=== PATIENT | male | born 1995 | race African-American/Black ===

== ENCOUNTER 2022-08-14 09:17 | Emergency (ER) | payer OTHER, SELFPAY ==
--- NOTE | ~2022-08-14 | XR_ITS ---
XR ankle LT min 3V, XR foot LT min 3V 08/14/2022 10:29 Indication: Left foot and ankle pain Procedure: 4 views left ankle and 4 views left foot Comparison: No prior studies for comparison. Findings: There is anatomic alignment. No acute fracture, subluxation or dislocation. No focal soft t issue abnormality. Lisfranc joint intact. No foreign bodies. Impression: 1: No acute fracture. Reviewed, dictated and finalized at location [facility]. [employer] Impression: 1: No acute fracture. Impression: 1: No acute fracture.
[2022-08-14 09:24] VITALS: BP 153/85; PULSE 79; RESP 18; TEMP 36.7; O2SAT 100
[2022-08-14] MEDS: IBUPROFEN 400 MG TABLET 800 MG PO (10:35)
[2022-08-14 10:37] VITALS: BP 163/84; PULSE 77; RESP 18; O2SAT 100
--- NOTE | 2022-08-14 10:39 | ED.GENADULT ---
HPI - General Adult General Chief complaint: Extremity Injury, Lower Stated complaint: Left foot injury 2 days ago, pain and swelling Time Seen by Provider: 08/14/22 09:23 History of Present Illness HPI narrative: This is a 27-year-old male presents to the ED with chief complaint of left ankle and foot injury. Related Data Allergies Allergy/AdvReac Type Severity Reaction Status Date / Time No Known Allergies Allergy Verified 08/14/22 09:32 Review of Systems Review of Systems: CONSTITUTIONAL: Denies fever, chills, or sweats. EYES: Denies visual changes, redness, or discharge. ENT: Denies rhinorrhea, congestion, sore throat, or otalgia. CARDIOVASCULAR: Denies chest pain, palpitations, or edema. RESPIRATORY: Denies cough or dyspnea. GASTROINTESTINAL: Denies abdominal pain, nausea, vomiting, or diarrhea. GENITOURINARY: Denies dysuria or hematuria. SKIN: Denies rash or itching. MUSCULOSKELETAL: Denies back pain, joint pain, or myalgia. NEUROLOGIC: Denies headache, numbness, dizziness, or weakness. PSYCHIATRIC: Denies anxiety or depression. Exam Narrative: GENERAL: Well-appearing, well-nourished, and in no acute distress. HEAD: Normocephalic, atraumatic. EYES: PERRLA and EOMI. EXTREMITIES: Left ankle: Mild effusion present. Tenderness along the lateral malleolus worse than medial malleolus. Ankle is stable. Left foot: Mild effusion present. Also has tenderness along the fifth metatarsal. MSK exam otherwise benign. Neurovascularly intact distally SKIN: Warm, dry, no rash. No overlying skin changes. Soft compartments. NEURO: Alert and oriented x3. No focal deficits. Course Vital Signs Vital signs: Vital Signs Temperature 98.1 F 08/14/22 09:24 Pulse Rate 79 08/14/22 09:24 Respiratory Rate 18 08/14/22 09:24 Blood Pressure 153/85 H 08/14/22 09:24 Pulse Oximetry 100 08/14/22 09:24 Oxygen Delivery Room Air 08/14/22 09:24 Temperature 98.1 F 08/14/22 09:24 Pulse Rate 61 08/14/22 11:00 Respiratory Rate 18 08/14/22 11:00 Blood Pressure 155/91 H 08/14/22 11:00 Pulse Oximetry 100 08/14/22 11:00 Oxygen Delivery Room Air 08/14/22 09:24 Medical Decision Making MDM Narrative Medical decision making narrative: This is a 27-year-old male comes in with chief complaint of left foot and ankle pain onset 2 days ago. Patient states he was partying at [email or web address] and suffered a twisting injury Sunday night. States it did not hurt as much at the time of injury but pain has been increasing since. He was able to bear weight at the time of the injury and able to bear weight here in the department. Exam reveals a swollen and tender left foot and left ankle. X-rays of of the left foot and ankle were ordered and showed no acute osseous findings. Recommend patient weightbearing as tolerated. We will give him a referral for orthopedics for further evaluation and management for probable left ankle sprain. Instructed patient to take Tylenol and ibuprofen regularly for pain. Also instructed to rest ice compress and elevate the ankle. Patient is understanding and agreeable with plan for discharge. Vital Signs Vital Signs: Vital Signs Temperature 98.1 F 08/14/22 09:24 Pulse Rate 79 08/14/22 09:24 Respiratory Rate 18 08/14/22 09:24 Blood Pressure 153/85 H 08/14/22 09:24 Pulse Oximetry 100 08/14/22 09:24 Oxygen Delivery Room Air 08/14/22 09:24 Temperature 98.1 F 08/14/22 09:24 Pulse Rate 61 08/14/22 11:00 Respiratory Rate 18 08/14/22 11:00 Blood Pressure 155/91 H 08/14/22 11:00 Pulse Oximetry 100 08/14/22 11:00 Oxygen Delivery Room Air 08/14/22 09:24 Discharge Plan Discharge Clinical Impression: Ankle sprain and strain Patient Disposition: Home, Self-Care Condition: Stable Instructions: Antibiotic Form Additional Instructions: Please take Tylenol and ibuprofen regularly for pain. Rest, ice, compress, elevate to treat the swelling P
[2022-08-14 11:00] VITALS: BP 155/91; PULSE 61; RESP 18; O2SAT 100
--- NOTE | 2022-08-14 11:07 | ED.GENADULT ---
HPI - General Adult General Chief complaint: Extremity Injury, Lower Stated complaint: Left foot injury 2 days ago, pain and swelling Time Seen by Provider: 08/14/22 09:23 History of Present Illness HPI narrative: This is a 27-year-old male comes in with chief complaint of left foot and ankle injury occurring 2 days ago. Suffered a twisting [place] while [place] a [employer]. He now has pain and swelling in the left foot and left ankle laterally. X-rays obtained and show no acute osseous findings. Given dose of Tylenol here in the ED for pain and inflammation. Instructions given for supportive measures at home. We will give referral for Ortho for further evaluation of the ankle sprain. Weightbearing as tolerated. Also gave follow-up information for PCP. Patient is understanding and agreeable plan for discharge. Related Data Allergies Allergy/AdvReac Type Severity Reaction Status Date / Time No Known Allergies Allergy Verified 08/14/22 09:32 Review of Systems Review of Systems: CONSTITUTIONAL: Denies fever, chills, or sweats. SKIN: Denies rash or itching. MUSCULOSKELETAL: Endorses left ankle pain and left foot pain. Denies back pain, further joint pain, or myalgia. NEUROLOGIC: Denies headache, numbness, dizziness, or weakness. PSYCHIATRIC: Denies anxiety or depression. Exam Narrative: GENERAL: Well-appearing, well-nourished, and in no acute distress. HEAD: Normocephalic, atraumatic. EYES: PERRLA and EOMI. EXTREMITIES: Left ankle: There is effusion of the left ankle. Tender inferior to the lateral malleolus. Less tender in the medial malleolus. Ankle intact. Left foot: Tenderness along the fourth and fifth metatarsals. Mild effusion. Neurovascularly intact distally. Right foot and right ankle within normal limits. MSK exam otherwise benign. normal range of motion. No edema. SKIN: Warm, dry, no rash. Soft compartments, no overlying skin changes. NEURO: Alert and oriented x3. No focal deficits. PSYCH: Normal mood and affect. Course Vital Signs Vital signs: Vital Signs Temperature 98.1 F 08/14/22 09:24 Pulse Rate 79 08/14/22 09:24 Respiratory Rate 18 08/14/22 09:24 Blood Pressure 153/85 H 08/14/22 09:24 Pulse Oximetry 100 08/14/22 09:24 Oxygen Delivery Room Air 08/14/22 09:24 Temperature 98.1 F 08/14/22 09:24 Pulse Rate 61 08/14/22 11:00 Respiratory Rate 18 08/14/22 11:00 Blood Pressure 155/91 H 08/14/22 11:00 Pulse Oximetry 100 08/14/22 11:00 Oxygen Delivery Room Air 08/14/22 09:24 Medical Decision Making Vital Signs Vital Signs: Vital Signs Temperature 98.1 F 08/14/22 09:24 Pulse Rate 79 08/14/22 09:24 Respiratory Rate 18 08/14/22 09:24 Blood Pressure 153/85 H 08/14/22 09:24 Pulse Oximetry 100 08/14/22 09:24 Oxygen Delivery Room Air 08/14/22 09:24 Temperature 98.1 F 08/14/22 09:24 Pulse Rate 61 08/14/22 11:00 Respiratory Rate 18 08/14/22 11:00 Blood Pressure 155/91 H 08/14/22 11:00 Pulse Oximetry 100 08/14/22 11:00 Oxygen Delivery Room Air 08/14/22 09:24 Discharge Plan Discharge Clinical Impression: Ankle sprain and strain Patient Disposition: Home, Self-Care Condition: Stable Instructions: Antibiotic Form Additional Instructions: Please take Tylenol and ibuprofen regularly for pain. Rest, ice, compress, elevate to treat the swelling Please follow-up with orthopedics and primary care physician. Follow-up/Referrals: Sin Cat MD [Physician] - PHYSICIAN,[employer] [Primary Care Provider] - Héctor Johnson MD [Physician] - Time of Disposition: 10:43
== END 2022-08-14 11:01 | disposition home or self-care (01) ==
PROVIDERS: Emergency Provider Physician Assistant
DX: S93.402A Sprain of unspecified ligament of left ankle, initial encounter (principal); S96.912A Strain of unspecified muscle and tendon at ankle and foot level, left foot, initial encounter; X50.9XXA Other and unspecified overexertion or strenuous movements or postures, initial encounter
CPT/HCPCS: 73610; 73630; 99283; A9270